=== PATIENT | female | born 1995 | race Caucasian/White ===

== ENCOUNTER 2017-12-20 20:41 | Observation (INO) | payer BC ==
[~2017-12-20] VITALS: Ht 172.7 cm; Wt 60.8 kg
[2017-12-20] MEDS ORDERED: BCPILLS PO (21:26)
[2017-12-20] MEDS ORDERED: SODIUM CHLORIDE 0.9% 1000ML 1,000 ML IV STA (21:26)
[2017-12-20] MEDS ORDERED: METOCLOPRAMIDE HCL INJ 5 MG/ML 2 ML VIAL IV STA (21:26)
[2017-12-20] MEDS ORDERED: CETI10TA10 PO (21:26)
--- NOTE | 2017-12-20 21:32 | EMERGENCY ROOM VISIT NOTE ---
History Report prepared by Kelsi: Trino Yates Under the Supervision of: Dr. Keny Palmer M.D. First contact with patient: 21:16 Chief Complaint: ABDOMINAL PAIN Stated Complaint: SHARP STOMACH PAIN Nursing Triage Summary: Abd pain that started in mid abdomen and has moved to RLQ. + nausea. Feels bloated. H/O IBS History of Present Illness The patient is a 22 year old female who presents to the Emergency Room with complaints of worsening, sharp, right-sided abdominal pain beginning earlier this morning. The patient states her symptoms have been increasing throughout the day to the point where she could not get out of bed. She reports she has a history of this a month ago, but it was not this severe. The patient notes she is also experiencing intermittent sweating throughout the day. She states her stools are typically soft, and she has not had changes in them. The patient reports she had a colonoscopy for possible Crohn's disease. She notes her sister has a history of Crohn's Disease, and her cousin has a history of celiac disease. The patient states her LNMP was 2 weeks ago. She denies the chance of , retaining a tampon, fever, vomiting, nausea, and a history of abdominal surgeries. The patient reports her parents know she is here, so I offered to call them. She said it was not necessary. Source of History: patient Onset: earlier this morning Position: abdomen (right-sided) Quality: sharp Timing: worsening Associated Symptoms: No fevers, No nausea, No vomiting Review of Systems See HPI for pertinent positives & negatives. A total of 10 systems reviewed and were otherwise negative. Past Medical & Surgical Medical Problems: (1) Asthma (2) IBS (irritable bowel syndrome) Family History Cancer Diabetes mellitus Kidney disease Kidney stones Social History Smoking Status: Never Smoker Smokeless Tobacco Use: No Alcohol Use: occasionally Housing Status: lives with friends Occupation Status: [employer] student Current/Historical Medications Scheduled Control Pills ( Control Pills), 1 TAB PO DAILY Cetirizine Hcl (Zyrtec), 10 MG PO DAILY Allergies Coded Allergies: POLLEN (Verified Allergy, Intermediate, ITCHY EYES, SNEEZING, CONGESTION, 12/20/17) Physical Exam Vital Signs Date Time Temp Pulse Resp B/P (MAP) Pulse Ox O2 Delivery O2 Flow Rate FiO2 12/21/17 00:40 102 18 117/68 100 Room Air 12/20/17 23:16 105 18 112/77 98 Room Air 12/20/17 20:47 36.7 114 20 113/77 98 Room Air Physical Exam GENERAL: Awake, alert, well-appearing, in no acute distress HENT: Normocephalic, atraumatic. Oropharynx unremarkable. EYES: Normal conjunctiva. Sclera non-icteric. NECK: Supple. No nuchal rigidity. FROM. No JVD. RESPIRATORY: Clear to auscultation. CARDIAC: Regular rate, normal rhythm. Extremities warm and well perfused. Pulses equal. ABDOMEN: Soft, non-distended. No rebound or guarding. No masses. Tender in the RLQ upon palpation. RECTAL: Deferred. MUSCULOSKELETAL: Chest examination reveals no tenderness. The back is symmetrical on inspection without obvious abnormality. There is no CVA tenderness to palpation. No joint edema. LOWER EXTREMITIES: Calves are equal size bilaterally and non-tender. No edema. No discoloration. NEURO: Normal sensorium. No sensory or motor deficits noted. SKIN: No rash or jaundice noted. Medical Decision & Procedures ER Provider Diagnostic Interpretation: Radiology results as stated below per my review and radiologist interpretation: PELVIC ULTRASOUND CLINICAL HISTORY: Right-sided pelvic pain. COMPARISON STUDY: None. TECHNIQUE: Transabdominal sonography of the pelvis was performed. Transvaginal imaging was deferred in this patient. FINDINGS: The uterus measures 5.8 x 2.5 x 3 cm. Endometrium measures 4 mm in thickness. The right ovary measures 2.9 x 1.8 x 2.4 cm and the left ovary measures 2.7 x 1.7 x 1.3 cm. Color flow was identified within each ovary. There is no free fluid. IMPRESSION: Unremarkable transabdominal pelvic ultrasound. Electronically signed by: Tio Dior M.D. 12/20/2017 10:54 PM Dictated Date/Time: 12/20/2017 10:53 PM APPENDIX ULTRASOUND HISTORY: Right lower quadrant pain. Evaluate for acute appendicitis. COMPARISON: None. FINDINGS: The appendix was not visualized by sonography. IMPRESSION: Nonvisualization of the appendix. This study is nondiagnostic in regards to evaluation for acute appendicitis. Electronically signed by: Tio Dior M.D. 12/20/2017 10:51 PM Dictated Date/Time: 12/20/2017 10:[address] ABDOMEN & PELVIS with contrast: Comparison: Pelvic Ultrasound dated 12/20/2017. Impression: Dilated appendix measuring up to 10 mm with minimal adjacent stranding. Findings are concerning for acute nonperforated appendicitis. Trace free fluid in the pelvis. Additional findings: lower thorax is unremarkable. Liver, gallbladder, spleen, pancreas, and adrenal glands are unremarkable. Kidneys, ureters, and urinary bladder are unremarkable. Uterus and adnexa are unremarkable. Bowel is unremarkable. No acute osseous abnormality. Radiologist: Erich Massey MD Study ready at 0006 and initial results transmitted at 0013 Laboratory Results 12/20/17 21:30 Red Blood Count 4.90, Mean Corpuscular Volume 89.6, Mean Corpuscular Hemoglobin 31.0, Mean Corpuscular Hemoglobin Concent 34.6, Mean Platelet Volume 9.0, Neutrophils (%) (Auto) 81.9, Lymphocytes (%) (Auto) 11.9, Monocytes (%) (Auto) 5.0, Eosinophils (%) (Auto) 0.8, Basophils (%) (Auto) 0.2, Neutrophils # (Auto) 14.37, Lymphocytes # (Auto) 2.09, Monocytes # (Auto) 0.87, Eosinophils # (Auto) 0.14, Basophils # (Auto) 0.04 12/20/17 21:30 Test 12/20/17 21:30 White Blood Count 17.55 K/uL (4.8-10.8) Red Blood Count 4.90 M/uL (4.2-5.4) Hemoglobin 15.2 g/dL (12.0-16.0) Hematocrit 43.9 % (37-47) Mean Corpuscular Volume 89.6 fL (80-100) Mean Corpuscular Hemoglobin 31.0 pg (25-34) Mean Corpuscular Hemoglobin Concent 34.6 g/dl (32-36) Platelet Count 269 K/uL (130-400) Mean Platelet Volume 9.0 fL (7.4-10.4) Neutrophils (%) (Auto) 81.9 % Lymphocytes (%) (Auto) 11.9 % Monocytes (%) (Auto) 5.0 % Eosinophils (%) (Auto) 0.8 % Basophils (%) (Auto) 0.2 % Neutrophils # (Auto) 14.37 K/uL (1.4-6.5) Lymphocytes # (Auto) 2.09 K/uL (1.2-3.4) Monocytes # (Auto) 0.87 K/uL (0.11-0.59) Eosinophils # (Auto) 0.14 K/uL (0-0.5) Basophils # (Auto) 0.04 K/uL (0-0.2) RDW Standard Deviation 39.6 fL (36.4-46.3) RDW Coefficient of Variation 12.3 % (11.5-14.5) Immature Granulocyte % (Auto) 0.2 % Immature Granulocyte # (Auto) 0.04 K/uL (0.00-0.02) Urine Color YELLOW Urine Appearance CLEAR (CLEAR) Urine pH 5.5 (4.5-7.5) Urine Specific [place] 1.025 (1.000-1.030) Urine Protein NEG (NEG) Urine Glucose (UA) NEG (NEG) Urine Ketones NEG (NEG) Urine Occult Blood NEG (NEG) Urine Nitrite NEG (NEG) Urine Bilirubin NEG (NEG) Urine Urobilinogen NEG (NEG) Urine Leukocyte Esterase TRACE (NEG) Urine WBC (Auto) 5-10 /hpf (0-5) Urine RBC (Auto) 0-4 /hpf (0-4) Urine Hyaline Casts (Auto) 1-5 /lpf (0-5) Urine Epithelial Cells (Auto) >30 /lpf (0-5) Urine Bacteria (Auto) 2+ (NEG) Urine Crystals CALCIUM OXALATE (NONE Urine Test NEG (NEG) Anion Gap 5.0 mmol/L (3-11) Est Creatinine Clear Calc Drug Dose 92.1 ml/min Estimated GFR () 102.4 Estimated GFR (Non- 88.4 BUN/Creatinine Ratio 12.1 (10-20) Calcium Level 9.4 mg/dl (8.5-10.1) Total Bilirubin 0.6 mg/dl (0.2-1) Direct Bilirubin 0.1 mg/dl (0-0.2) Aspartate Amino Transf (AST/SGOT) 14 U/L (15-37) Alanine Aminotransferase (ALT/SGPT) 14 U/L (12-78) Alkaline Phosphatase 58 U/L (45-117) Total Protein 7.7 gm/dl (6.4-8.2) Albumin 4.0 gm/dl (3.4-5.0) Lipase 143 U/L (73-393) Labs reviewed by ED physician. Medications Administered Medications (Trade) Dose Ordered Sig/Jamil Route Start Time Stop Time Status Last Admin Dose Admin Sodium Chloride 1,000 ml @ 999 mls/hr Q1H1M STAT IV 12/20/17 21:26 12/20/17 22:26 DC 12/20/17 22:04 999 MLS/HR Metoclopramide HCl (Reglan Inj) 10 mg NOW STAT IV 12/20/17 21:26 12/20/17 21:30 DC 12/20/17 22:04 10 MG Cefoxitin Sodium (Mefoxin 2000mg/ 60 ml D5W) 2,000 mg NOW STAT IV 12/21/17 00:15 12/21/17 00:16 DC 12/21/17 00:39 2,000 MG ED Course 2116: Past medical records reviewed. The patient was evaluated in room B10. A complete history and physical examination was performed. 6: Ordered Metoclopramide HCl 10mg IV, Sodium Chloride 1000 ml @ 999 mls/hr IV 0014: Upon reexamination the patient is resting. I discussed results and treatment plan with the patient and her father on the phone. I answered all questions the father had over the phone. She verbalizes agreement and understanding. The patient will be evaluated for further management. 0015: Ordered Cefoxitin Sodium 2000mg IV 0019: I discussed the patient's case with Dr. Baker, General Surgery. The patient will be evaluated for further management. He will complete the surgery at 0400 today. Medical Decision Etiologies such as appendicitis, diverticulitis, PUD, biliary pathology, UTI, pancreatitis, obstruction, mesenteric ischemia, aortic pathology, infections, inflammatory bowel disease, renal colic, as well as others were entertained. This is a 22-year-old female who presents the emergency department complaining of right-sided abdominal pain. Requested to speak with this patient's parents however she declined. The patient did agree to however obtaining IV laboratory work as well as a CAT scan of the abdomen and pelvis. The patient's laboratory work is concerning for an elevation in her white blood cell count at 17. In addition the patient's ultrasound does not show any evidence of appendicitis or ovarian cysts. The patient refused pain medication here in the emergency department however she did receive normal saline bolus as well as Reglan. Patient was sent for a CAT scan of the abdomen and pelvis which was concerning for acute appendicitis. At this time the patient relented and allowed me to speak with her father. I discussed the fact that the patient will need surgery and started the patient on antibiotics. I did discuss the case with Dr. Baker who is currently in the operating room and will see the patient after his current case. Father is driving in from [place]. Medication Reconcilliation Current Medication List: was personally reviewed by me Blood Pressure Screening Patient's blood pressure: Normal blood pressure Blood pressure disposition: Did not require urgent referral Consults Time Called: 13 Consulting Physician: Dr. Baker, General Surgery Returned Call: [phone] I discussed the patient's case with Dr. Baker, General Surgery. The patient will be evaluated for further management. He will complete the surgery at 0400 today. Impression Primary Impression: Right lower quadrant abdominal pain Scribe Attestation The scribe's documentation has been prepared under my direction and personally reviewed by me in its entirety. I confirm that the note above accurately reflects all work, treatment, procedures, and medical decision making performed by me. Departure Information Dispostion Being Evaluated By Surgeon Patient Instructions My [facility]
[2017-12-20 21:38] LABS: BASO % 0.2 %; BASO ABS # 0.04 K/uL (0-0.2); EOS % 0.8 %; EOS ABS # 0.14 K/uL (0-0.5); HEMATOCRIT 43.9 % (37-47); HEMOGLOBIN 15.2 g/dL (12.0-16.0); IG# 0.04 K/uL (0.00-0.02); LYMPH % 11.9 %; LYMPH ABS # 2.09 K/uL (1.2-3.4); MEAN CELL VOLUME 89.6 fL (80-100); MEAN CORPUSCULAR HGB CONC 34.6 g/dl (32-36); MONO ABS # 0.87 K/uL (0.11-0.59); NEUT % 81.9 %; NEUT ABS # 14.37 K/uL (1.4-6.5); PLATELET COUNT 269 K/uL (130-400); RED CELL DISTRIBUTION WIDTH CV 12.3 % (11.5-14.5); RED CELL DISTRIBUTION WIDTH SD 39.6 fL (36.4-46.3); WHITE BLOOD COUNT 17.55 K/uL (4.8-10.8)
[2017-12-20 22:00] LABS: CALCIUM 9.4 mg/dl (8.5-10.1); CREATININE 0.92 mg/dl (0.60-1.20); POTASSIUM 3.7 mmol/L (3.5-5.1)
[2017-12-20 22:02] LABS: TOTAL PROTEIN 7.7 gm/dl (6.4-8.2)
--- NOTE | 2017-12-20 22:53 | DIAGNOSTIC IMAGING REPORT ---
APPENDIX ULTRASOUND HISTORY: Right lower quadrant pain. Evaluate for acute appendicitis. COMPARISON: None. FINDINGS: The appendix was not visualized by sonography. IMPRESSION: Nonvisualization of the appendix. This study is nondiagnostic in regards to evaluation for acute appendicitis. Electronically signed by: Tio Dior M.D. 12/20/2017 10:51 PM Dictated Date/Time: 12/20/2017 10:50 PM
--- NOTE | 2017-12-20 22:55 | DIAGNOSTIC IMAGING REPORT ---
PELVIC ULTRASOUND CLINICAL HISTORY: Right-sided pelvic pain. COMPARISON STUDY: None. TECHNIQUE: Transabdominal sonography of the pelvis was performed. Transvaginal imaging was deferred in this patient. FINDINGS: The uterus measures 5.8 x 2.5 x 3 cm. Endometrium measures 4 mm in thickness. The right ovary measures 2.9 x 1.8 x 2.4 cm and the left ovary measures 2.7 x 1.7 x 1.3 cm. Color flow was identified within each ovary. There is no free fluid. IMPRESSION: Unremarkable transabdominal pelvic ultrasound. Electronically signed by: Tio Dior M.D. 12/20/2017 10:54 PM Dictated Date/Time: 12/20/2017 10:53 PM
[2017-12-21] VITALS (9 sets, daily range): BP systolic 93–105; BP diastolic 53–72; PULSE 68–106; TEMP 36.5–36.9; O2SAT 96–99; Ht 172.7 cm; Wt 60.8 kg
[2017-12-21] MEDS ORDERED: CEFOXITIN 2000MG/60 ML D5W IV STA (00:15)
--- NOTE | 2017-12-21 05:32 | History and Physical ---
History & Physical Date & Time of Service: Dec 21, 2017 at 05:24 Chief Complaint: Sharp Stomach Pain Primary Care Physician: [facility] History of Present Illness Source: patient This is a 22-year-old female who began with vague generalized abdominal discomfort that was described as a dull ache. It was throughout her abdomen. Over the next 6-7 hours it then migrated to the right lower quadrant or is presently located. She had some nausea and has lost her appetite. She has not vomited. She has diarrhea on a frequent basis but her stools have not changed. She has been evaluated by gastroenterology with colonoscopy. She has a family history of Crohn's but biopsies of her colon and small bowel demonstrated no evidence of Crohn's disease pathologically. She has not had any blood with her stool recently. She has no dysuria or hematuria. She has no irregularities of her menstrual periods. The discomfort is exacerbated by motion. She has not had fever. Past Medical/Surgical History Medical Problems: (1) Asthma (2) IBS (irritable bowel syndrome) PSH: Willis teeth Family History Cancer Diabetes mellitus Kidney disease Kidney stones Social History Smoking Status: Never Smoker Smokeless Tobacco Use: No Alcohol Use: none Occupational Status: [employer] student Allergies Coded Allergies: POLLEN (Verified Allergy, Intermediate, ITCHY EYES, SNEEZING, CONGESTION, 12/20/17) Home Medications Scheduled Control Pills ( Control Pills), 1 TAB PO DAILY Cetirizine Hcl (Zyrtec), 10 MG PO DAILY Review of Systems Constitutional: No fever, No chills Respiratory: No cough, No sputum Cardiovascular: No chest pain Abdomen: + problem reported (as per HPI) Genitourinary - Female: + problem reported (as per HPI) Endocrine: No fatigue Hematologic / Lymphatic: No abnormal bleeding/bruising Integumentary: No rash Physical Exam Vital Signs Date Time Temp Pulse Resp B/P (MAP) Pulse Ox O2 Delivery O2 Flow Rate FiO2 12/21/17 03:49 109 16 133/78 96 Room Air 12/21/17 01:57 114 16 109/66 97 Room Air 12/21/17 00:40 102 18 117/68 100 Room Air 12/20/17 23:16 105 18 112/77 98 Room Air 12/20/17 20:47 36.7 114 20 113/77 98 Room Air General Appearance: WD/WN Head: normocephalic Neck: supple, no adenopathy Respiratory/Chest: chest non-tender, lungs clear Abdomen/GI: normal bowel sounds, soft, + tenderness (to moderate palpation im the RLQ) Back: normal inspection, no CVA tenderness Skin: normal color Diagnostics Laboratory Results Results Past 24 Hours Test 12/20/17 21:30 Range/Units White Blood Count 17.55 4.8-10.8 K/uL Red Blood Count 4.90 4.2-5.4 M/uL Hemoglobin 15.2 12.0-16.0 g/dL Hematocrit 43.9 37-47 % Mean Corpuscular Volume 89.6 80-100 fL Mean Corpuscular Hemoglobin 31.0 25-34 pg Mean Corpuscular Hemoglobin Concent 34.6 32-36 g/dl Platelet Count 269 130-400 K/uL Mean Platelet Volume 9.0 7.4-10.4 fL Neutrophils (%) (Auto) 81.9 % Lymphocytes (%) (Auto) 11.9 % Monocytes (%) (Auto) 5.0 % Eosinophils (%) (Auto) 0.8 % Basophils (%) (Auto) 0.2 % Neutrophils # (Auto) 14.37 1.4-6.5 K/uL Lymphocytes # (Auto) 2.09 1.2-3.4 K/uL Monocytes # (Auto) 0.87 0.11-0.59 K/uL Eosinophils # (Auto) 0.14 0-0.5 K/uL Basophils # (Auto) 0.04 0-0.2 K/uL RDW Standard Deviation 39.6 36.4-46.3 fL RDW Coefficient of Variation 12.3 11.5-14.5 % Immature Granulocyte % (Auto) 0.2 % Immature Granulocyte # (Auto) 0.04 0.00-0.02 K/uL Urine Color YELLOW Urine Appearance CLEAR CLEAR Urine pH 5.5 4.5-7.5 Urine Specific [place] 1.025 1.000-1.030 Urine Protein NEG NEG Urine Glucose (UA) NEG NEG Urine Ketones NEG NEG Urine Occult Blood NEG NEG Urine Nitrite NEG NEG Urine Bilirubin NEG NEG Urine Urobilinogen NEG NEG Urine Leukocyte Esterase TRACE NEG Urine WBC (Auto) 5-10 0-5 /hpf Urine RBC (Auto) 0-4 0-4 /hpf Urine Hyaline Casts (Auto) 1-5 0-5 /lpf Urine Epithelial Cells (Auto) >30 0-5 /lpf Urine Bacteria (Auto) 2+ NEG Urine Crystals CALCIUM OXALATE NONE PRSENT Urine Test NEG NEG Sodium Level 136 136-145 mmol/L Potassium Level 3.7 3.5-5.1 mmol/L Chloride Level 104 98-107 mmol/L Carbon Dioxide Level 27 21-32 mmol/L Anion Gap 5.0 3-11 mmol/L Blood Urea Nitrogen 11 7-18 mg/dl Creatinine 0.92 0.60-1.20 mg/dl Est Creatinine Clear Calc Drug Dose 92.1 ml/min Estimated GFR () 102.4 Estimated GFR (Non- 88.4 BUN/Creatinine Ratio 12.1 10-20 Random Glucose 104 70-99 mg/dl Calcium Level 9.4 8.5-10.1 mg/dl Total Bilirubin 0.6 0.2-1 mg/dl Direct Bilirubin 0.1 0-0.2 mg/dl Aspartate Amino Transf (AST/SGOT) 14 15-37 U/L Alanine Aminotransferase (ALT/SGPT) 14 12-78 U/L Alkaline Phosphatase 58 45-117 U/L Total Protein 7.7 6.4-8.2 gm/dl Albumin 4.0 3.4-5.0 gm/dl Lipase 143 73-393 U/L Diagnostic Radiology PELVIC ULTRASOUND CLINICAL HISTORY: Right-sided pelvic pain. COMPARISON STUDY: None. TECHNIQUE: Transabdominal sonography of the pelvis was performed. Transvaginal imaging was deferred in this patient. FINDINGS: The uterus measures 5.8 x 2.5 x 3 cm. Endometrium measures 4 mm in thickness. The right ovary measures 2.9 x 1.8 x 2.4 cm and the left ovary measures 2.7 x 1.7 x 1.3 cm. Color flow was identified within each ovary. There is no free fluid. IMPRESSION: Unremarkable transabdominal pelvic ultrasound.APPENDIX ULTRASOUND HISTORY: Right lower quadrant pain. Evaluate for acute appendicitis. COMPARISON: None. FINDINGS: The appendix was not visualized by sonography. IMPRESSION: Nonvisualization of the appendix. This study is nondiagnostic in regards to evaluation for acute appendicitis. CT scan of the abdomen and pelvis demonstrates a dilated appendix measuring 10 mm in greatest dimension. There is mild periappendiceal fat stranding consistent with acute appendicitis. Impression Assessment and Plan This patient's history, physical findings, laboratories and CT findings are consistent with appendicitis. I have recommended a laparoscopic appendectomy. I explained the possible need to convert to an open procedure. I explained the possible complications associated with those procedures. The patient wishes to go ahead with surgery and has signed a consent form. Resuscitation Status VTE Prophylaxis Will order VTE Prophylaxis: Yes Reason for no VTE drug order: Treatment not indicated
[2017-12-21] MEDS ORDERED: MIDAZOLAM HCL 1 MG/ML 2ML VIAL ONE (05:50)
[2017-12-21] MEDS ORDERED: PROPOFOL IV EMULSION 10 MG/ML 20 ML VIAL IV ONE (05:51)
[2017-12-21] MEDS ORDERED: FENTANYL CITRATE INJ 50 MCG/1 ML 2 ML VIAL ONE ×2 (05:51→07:08)
[2017-12-21] MEDS ORDERED: HEPARIN SOD (PORCINE) 1000 UNIT/ML 10 ML VIAL ONE (05:52)
[2017-12-21] MEDS ORDERED: BUPIVACAINE 0.5 % 5 MG/1 ML MPF 30ML VIAL ONE (05:52)
[2017-12-21] MEDS ORDERED: LIDOCAINE HCL 2% 2 ML VIAL (20MG/ML) ONE (05:52)
[2017-12-21] MEDS ORDERED: SUCCINYLCHOLINE 100MG/5ML SYR IV ONE (05:52)
[2017-12-21] MEDS ORDERED: CEFAZOLIN SOD 1 GM VIAL ONE (05:52)
[2017-12-21] MEDS ORDERED: DEXAMETHASONE SOD INJ 4 MG/ML VIAL ONE (05:53)
[2017-12-21] MEDS ORDERED: ONDANSETRON INJ 2 MG/ML 2 ML VIAL ONE (05:53)
[2017-12-21] MEDS ORDERED: ATROPINE SULFATE 0.1 MG/ML 5ML SYR IV PRN (06:00)
[2017-12-21] MEDS ORDERED: LABETALOL HCL IV 5 MG/ML 20ML IV PRN (06:00)
[2017-12-21] MEDS ORDERED: EpHEDrine SULFATE INJ 50 MG/ML AMP IV PRN (06:00)
[2017-12-21] MEDS ORDERED: NALOXONE HCL 0.4 MG/1 ML VIAL/CARP IV PRN (06:00)
[2017-12-21] MEDS ORDERED: HYDROmorphone INJ 2 MG/ML SYR/VIAL IV PRN (06:00)
[2017-12-21] MEDS ORDERED: PHENYLEPHRINE 100MCG/ML 5ML SYR IV PRN (06:00)
[2017-12-21] MEDS ORDERED: MEPERIDINE HCL 25 MG/ML CARP IV PRN (06:00)
[2017-12-21] MEDS ORDERED: ONDANSETRON INJ 2 MG/ML 2 ML VIAL IV PRN ×2 (06:00→07:30)
[2017-12-21] MEDS ORDERED: FENTANYL CITRATE INJ 50 MCG/1 ML 2 ML VIAL IV PRN (06:00)
[2017-12-21] MEDS ORDERED: FLUMAZENIL 0.1 MG/1 ML 10 ML VIAL IV PRN (06:00)
[2017-12-21] MEDS ORDERED: GLYCOPYRROLATE INJ 0.2 MG/ML VIAL ONE (06:26)
[2017-12-21] MEDS ORDERED: NEOSTIGMINE METHYLSULFATE 5 MG/5 ML SYR ONE (06:26)
[2017-12-21] MEDS ORDERED: ESMOLOL HCL 10 MG/ML 10 ML VIAL ONE (06:34)
[2017-12-21] MEDS ORDERED: ROCURONIUM BROMIDE 10 MG/ML 5 ML VIAL IV ONE (06:54)
[2017-12-21] MEDS ORDERED: KETOROLAC TROMETHAMINE 30 MG/ML VIAL ONE (06:55)
[2017-12-21] MEDS ORDERED: CEFOXITIN SOD 1 GM VIAL ONE (07:00)
--- NOTE | 2017-12-21 07:21 | [facility] Post Operative Brief Note ---
Immediate Operative Summary Operative Date Dec 21, 2017. Pre-Operative Diagnosis Acute appendicitis Post-Operative Diagnosis Acute appendicitis Procedure(s) Performed Laparoscopic Appendectomy Surgeon Dr. Declan Baker Nurse Examiner Surgeon(s) None Estimated Blood Loss 5 ml Findings Consistent with Post-Op Diagnosis Specimens A: Appendix Drains None Anesthesia Type General Complication(s) none Disposition Disposition: Recovery Room / PACU
[2017-12-21] MEDS ORDERED: MoRPHine SULFATE 4 MG/ML 1 ML CARP\\VIAL IV PRN (07:30)
--- NOTE | 2017-12-21 07:30 | Anesthesiology Progress Note ---
Anesthesia Post Op Note Date & Time Dec 21, 2017 at 07:30 Vital Signs Pain Intensity: 2.0 Vital Signs Past 12 Hours Date Time Temp Pulse Resp B/P (MAP) Pulse Ox O2 Delivery O2 Flow Rate FiO2 12/21/17 05:27 106 16 125/73 98 12/21/17 03:49 109 16 133/78 96 Room Air 12/21/17 01:57 114 16 109/66 97 Room Air 12/21/17 00:40 102 18 117/68 100 Room Air 12/20/17 23:16 105 18 112/77 98 Room Air 12/20/17 20:47 36.7 114 20 113/77 98 Room Air Notes Mental Status: alert / awake / arousable, participated in evaluation Pt Amnestic to Procedure: Yes Nausea / Vomiting: adequately controlled Pain: adequately controlled Airway Patency, RR, SpO2: stable & adequate BP & HR: stable & adequate Hydration State: stable & adequate Anesthetic Complications: no major complications apparent
--- NOTE | 2017-12-21 08:52 | DIAGNOSTIC IMAGING REPORT ---
CT SCAN OF THE ABDOMEN AND PELVIS WITH IV CONTRAST CLINICAL HISTORY: Right lower quadrant abdominal pain. COMPARISON STUDY: Pelvic ultrasound dated 12/20/2017. TECHNIQUE: Following the IV administration of 93 cc of Optiray 320, CT scan of the abdomen and pelvis is performed from the lung bases to the proximal femora. Images are reviewed in the axial, sagittal, and coronal planes. IV contrast was administered without complication. A dose lowering technique was utilized adhering to the principles of ALARA. CT DOSE: 272.17 mGy.cm FINDINGS: Lung bases: The heart is normal in size and without pericardial effusion. The lung bases are clear. Liver: The contrast-enhanced liver is normal in size, contour, and attenuation. There is no intrahepatic biliary ductal dilatation. The hepatic veins and portal veins are patent. Gallbladder: Unremarkable. Spleen: Normal in size and attenuation. Pancreas: Unremarkable. Adrenal glands: Unremarkable. Kidneys: The contrast enhanced kidneys are normal in size and without hydronephrosis. The kidneys enhance symmetrically. Abdominal vasculature: The abdominal aorta is normal in course and caliber. Bowel: The small bowel and colon are normal in course and caliber. The appendix is dilated and fluid-filled, measuring up to 12 mm in thickness. There is mild appendiceal inflammatory change. A calcified appendicolith is seen on image #299. Findings are consistent with acute appendicitis. There is no evidence of appendiceal abscess. Peritoneum: There is no intraperitoneal free air or abdominal ascites. There is a small fat-containing umbilical hernia. Lymphadenopathy: None. Pelvic viscera: The bladder, uterus, and adnexa are normal as visualized. There are bilateral ovarian follicles. Trace free fluid is seen in the cul-de-sac. Skeletal structures: No lytic or blastic lesions are seen. IMPRESSION: 1. Findings are consistent with acute appendicitis. There is no evidence of abscess or perforation. 2. Trace free fluid in the cul-de-sac is likely within physiologic limits. Electronically signed by: Arik Davidson M.D. 12/21/2017 7:14 AM Dictated Date/Time: 12/21/2017 7:11 AM
[2017-12-21] MEDS ORDERED: ACETAMINOPHEN 325 MG TAB PO PRN (09:45)
--- NOTE | 2017-12-21 09:47 | OPERATIVE REPORT ---
DATE OF OPERATION: 12/21/2017 PREOPERATIVE DIAGNOSIS: Appendicitis. POSTOPERATIVE DIAGNOSIS: Appendicitis. PROCEDURE: Laparoscopic appendectomy. SURGEON: Declan Baker MD FINDINGS: The patient had appendicitis involving the distal two-thirds of the appendix. The base was normal. The cecum at the base was normal. There was no evidence of perforation or abscess. The pelvis had a small amount of fluid. This did not appear purulent. TECHNIQUE: The patient was given general anesthetic and the area was prepped and draped in the usual sterile fashion. A transverse incision was made below the umbilicus, carried down through the subcutaneous tissue to the fascia which was grasped with 2 Gerard clamps and incised between. The peritoneum was identified, incised, and the introducer was placed bluntly. The abdomen was then insufflated to a pressure of 15 mmHg with carbon dioxide. The lower midline introducer was placed under direct vision through a small skin incision. The cecum was evaluated and the small bowel was retracted more medially which exposed the appendix extending off the medial aspect of the cecum. The left lower quadrant introducer was then placed under direct vision. Traction was placed anteriorly on the appendix. There were some flimsy adhesions that were taken down, which exposed the mesoappendix. I was able to establish a plane for about four-fifths of the mesoappendix and this was divided using an Endo-RENE stapler. I then was able to further elevate the appendix and identify the base by taking additional flimsy adhesions to the wall of the cecum inferiorly. That allowed me to identify the base of the cecum and establish a plane between the mesoappendix and the appendix. That was divided using the Endo-RENE. Placing additional traction confirmed the fact that I was at the base of the appendix. The appendix was then amputated using the Endo-RENE. The appendix was placed into the Endobag and brought it through the left lower quadrant introducer site. Then the introducer was replaced and the right lower quadrant was irrigated. The irrigation was removed. The staple lines were inspected and there was no bleeding. Any fluid in the right upper quadrant and pelvis was removed. The gas was allowed to escape and the introducers were removed. The fascia of the umbilical and left lower quadrant introducer sites was closed with interrupted 0 Vicryl and the skin of all the incisions was closed with 4-0 Monocryl in either an interrupted or running subcuticular fashion. The skin was anesthetized with 0.5% Marcaine. The skin was cleansed and dried, benzoin placed, Steri-Strips applied. The estimated blood loss was 5 mL. Sponge, needle, and instrument counts were correct prior to closure. The patient tolerated the surgical procedure without complication and was transferred to recovery. I attest to the content of the Intraoperative Record and any orders documented therein. Any exception s are noted below.
[2017-12-21] MEDS: D5W AND 1/2NSS + 20MEQ KCL 1,000 ML IV SCH ×2 (09:55→21:06)
[2017-12-21] MEDS ORDERED: IV FLUIDS COMPLETED PRN (10:00)
[2017-12-21] MEDS ORDERED: OXYC-57 PO (12:04)
--- NOTE | 2017-12-21 12:08 | Discharge Instructions ---
Discharge Instructions Date of Service Dec 21, 2017. Admission Reason for Admission: Appendicitis Discharge Discharge Diagnosis / Problem: same Discharge Goals Goal(s): Decrease discomfort, Improve function Activity Recommendations Activity Limitations: per Instructions/Follow-up section No heavy lifting over 20 pounds for 2 weeks No strenuous activity until cleared by surgeon No submerging incisions underwater for 2 weeks (no bathing, swimming, or hot tubs) No driving while taking narcotic pain medication or until you are pain free . Instructions / Follow-Up Instructions / Follow-Up You may shower in 24 hours. Leave steri strips on incisions for 7 days and then remove. They may fall off on their own that is okay. Walking and light activity is encouraged to prevent blood clots from forming You will be given narcotic pain medication (Percocet) as needed for moderate to severe pain. Take as directed. This medication may make you drowsy and can cause constipation. To combat constipation, drink plenty of water daily, daily walking, you may take OTC stool softener, a gentle laxative, or prune juice if needed. You may take extra strength Ibuprofen as needed in between doses of Percocet for mild pain. When you are NO LONGER taking Percocet you can take extra strength Tylenol as needed for mild pain. DO NOT take Tylenol with Percocet as it has Tylenol in it. Follow-up in surgical office in 2 weeks, please call office at [phone] to make an appointment Current Hospital Diet Patient's current hospital diet: Regular Diet Discharge Diet Recommended Diet: Regular Diet Procedures Procedures Performed: Laparoscopic Appendectomy Pending Studies Studies pending at discharge: yes List of pending studies: appendix pathology will be reviewed at follow up visit Medical Emergencies . Who to Call and When: Medical Emergencies: If at any time you feel your situation is an emergency, please call 911 immediately. . Non-Emergent Contact Non-Emergency issues call your: Primary Care Provider, Surgeon Call Non-Emergent contact if: you have a fever, temperature is above 101, your pain is not controlled, your pain is worsening, your pain is unusual for you, wound has increased drainage, wound has increased redness, wound has increased pain . "Provider Documentation" section prepared by Adrianna Latham. . [place] Drug Monitoring Program Search Results: patient reviewed within database, no issues identified
--- NOTE | 2017-12-21 16:21 | Surgery Progress Note ---
Surgery Progress Note Date of Service Dec 21, 2017. Subjective Post OP Day: POD # 0 s/p laparoscopic appendectomy Objective Vital Signs: Date Time Temp Pulse Resp B/P (MAP) Pulse Ox O2 Delivery O2 Flow Rate FiO2 12/21/17 14:59 36.8 90 18 103/69 (80) 96 Room Air 12/21/17 11:15 36.9 106 16 97/53 (68) 98 Room Air 12/21/17 10:10 36.6 88 16 99/72 (81) 98 Room Air 12/21/17 09:21 89 16 96/66 (76) 98 Room Air 12/21/17 08:45 36.5 87 16 93/59 (70) 97 Room Air 12/21/17 08:15 36.9 68 16 96/62 (73) 99 Room Air 12/21/17 08:15 99 Room Air 12/21/17 08:15 36.9 68 16 96/62 99 Room Air 12/21/17 08:03 37.6 77 16 107/73 (84) 100 Room Air 12/21/17 07:40 36.5 68 20 104/61 97 Room Air 12/21/17 07:30 36.5 62 15 107/65 96 Room Air 12/21/17 07:20 36.5 73 14 102/56 99 Room Air 12/21/17 05:27 106 16 125/73 98 12/21/17 03:49 109 16 133/78 96 Room Air 12/21/17 01:57 114 16 109/66 97 Room Air 12/21/17 00:40 102 18 117/68 100 Room Air 12/20/17 23:16 105 18 112/77 98 Room Air 12/20/17 20:47 36.7 114 20 113/77 98 Room Air General Appearance: WD/WN, no apparent distress Head: normocephalic, atraumatic Neck: trachea midline Respiratory/Chest: no respiratory distress, no accessory muscle use Abdomen: non distended, soft, + tenderness (at incision sites appropriate) Incision(s): clean, dry, intact Laboratory Results: Results Past 24 Hours Test 12/20/17 21:30 Range/Units White Blood Count 17.55 4.8-10.8 K/uL Red Blood Count 4.90 4.2-5.4 M/uL Hemoglobin 15.2 12.0-16.0 g/dL Hematocrit 43.9 37-47 % Mean Corpuscular Volume 89.6 80-100 fL Mean Corpuscular Hemoglobin 31.0 25-34 pg Mean Corpuscular Hemoglobin Concent 34.6 32-36 g/dl Platelet Count 269 130-400 K/uL Mean Platelet Volume 9.0 7.4-10.4 fL Neutrophils (%) (Auto) 81.9 % Lymphocytes (%) (Auto) 11.9 % Monocytes (%) (Auto) 5.0 % Eosinophils (%) (Auto) 0.8 % Basophils (%) (Auto) 0.2 % Neutrophils # (Auto) 14.37 1.4-6.5 K/uL Lymphocytes # (Auto) 2.09 1.2-3.4 K/uL Monocytes # (Auto) 0.87 0.11-0.59 K/uL Eosinophils # (Auto) 0.14 0-0.5 K/uL Basophils # (Auto) 0.04 0-0.2 K/uL RDW Standard Deviation 39.6 36.4-46.3 fL RDW Coefficient of Variation 12.3 11.5-14.5 % Immature Granulocyte % (Auto) 0.2 % Immature Granulocyte # (Auto) 0.04 0.00-0.02 K/uL Urine Color YELLOW Urine Appearance CLEAR CLEAR Urine pH 5.5 4.5-7.5 Urine Specific [place] 1.025 1.000-1.030 Urine Protein NEG NEG Urine Glucose (UA) NEG NEG Urine Ketones NEG NEG Urine Occult Blood NEG NEG Urine Nitrite NEG NEG Urine Bilirubin NEG NEG Urine Urobilinogen NEG NEG Urine Leukocyte Esterase TRACE NEG Urine WBC (Auto) 5-10 0-5 /hpf Urine RBC (Auto) 0-4 0-4 /hpf Urine Hyaline Casts (Auto) 1-5 0-5 /lpf Urine Epithelial Cells (Auto) >30 0-5 /lpf Urine Bacteria (Auto) 2+ NEG Urine Crystals CALCIUM OXALATE NONE PRSENT Urine Test NEG NEG Sodium Level 136 136-145 mmol/L Potassium Level 3.7 3.5-5.1 mmol/L Chloride Level 104 98-107 mmol/L Carbon Dioxide Level 27 21-32 mmol/L Anion Gap 5.0 3-11 mmol/L Blood Urea Nitrogen 11 7-18 mg/dl Creatinine 0.92 0.60-1.20 mg/dl Est Creatinine Clear Calc Drug Dose 92.1 ml/min Estimated GFR () 102.4 Estimated GFR (Non- 88.4 BUN/Creatinine Ratio 12.1 10-20 Random Glucose 104 70-99 mg/dl Calcium Level 9.4 8.5-10.1 mg/dl Total Bilirubin 0.6 0.2-1 mg/dl Direct Bilirubin 0.1 0-0.2 mg/dl Aspartate Amino Transf (AST/SGOT) 14 15-37 U/L Alanine Aminotransferase (ALT/SGPT) 14 12-78 U/L Alkaline Phosphatase 58 45-117 U/L Total Protein 7.7 6.4-8.2 gm/dl Albumin 4.0 3.4-5.0 gm/dl Lipase 143 73-393 U/L Assessment & Plan POD # 0 s/p laparoscopic appendectomy - vss, afebrile - tolerated diet -+diarrhea - no nausea or vomiting Plan: Continue current pain management Continue IV Fluids Continue regular diet Continue IV Zofran prn nausea OOB to chair and ambulation SCDS and Incentive spirometry Discharge home tomorrow Dr. Baker has seen pt, agrees with above
[2017-12-21] MEDS: OXYCODONE/ACETAMINOPHEN 5-325 TAB PO PRN (21:11)
[2017-12-22 03:50] VITALS: BP 100/63; PULSE 67; TEMP 36.6; O2SAT 96
[2017-12-22] MEDS: OXYCODONE/ACETAMINOPHEN 5-325 TAB PO PRN ×2 (07:33→14:09)
[2017-12-22 07:40] VITALS: O2SAT 96
[2017-12-22 07:43] VITALS: BP 100/63; PULSE 67; TEMP 36.6; O2SAT 96
[2017-12-22 08:10] VITALS: BP 116/76; PULSE 69; TEMP 36.6; O2SAT 98
[2017-12-22] MEDS: D5W AND 1/2NSS + 20MEQ KCL 1,000 ML IV SCH (09:25)
--- NOTE | 2017-12-22 10:54 | Surgery Progress Note ---
Surgery Progress Note Date of Service Dec 22, 2017. Subjective Post OP Day: 1 (s/p laparoscopic appendectomy) + feeling well, + complaints (abdominal pain when sitting up), + ambulating, + bowel movement, + flatus, + pain controlled, + diet (regular diet), No chest pain, No SOB, No nausea, No vomiting Objective Vital Signs: Date Time Temp Pulse Resp B/P (MAP) Pulse Ox O2 Delivery O2 Flow Rate FiO2 12/22/17 08:10 36.6 69 18 116/76 (89) 98 Room Air 12/22/17 07:43 36.6 67 16 96 Room Air 12/22/17 07:40 96 12/22/17 03:50 36.6 67 16 100/63 (75) 96 Room Air 12/21/17 22:55 36.9 83 16 101/66 (78) 96 Room Air 12/21/17 19:20 36.9 86 18 105/68 (80) 96 Room Air 12/21/17 19:15 Room Air 12/21/17 15:15 96 Room Air 12/21/17 14:59 36.8 90 18 103/69 (80) 96 Room Air 12/21/17 11:15 36.9 106 16 97/53 (68) 98 Room Air General Appearance: WD/WN, no apparent distress Head: normocephalic, atraumatic Neck: trachea midline Respiratory/Chest: no respiratory distress, no accessory muscle use Abdomen: non distended, soft, no organomegaly, no pulsatile mass, + tenderness (at incision sites appropriate post op) Incision(s): clean, dry (dressing clean and dry, incisions not inspected) Assessment & Plan POD # 1 s/p laparoscopic appendectomy - vss, afebrile - tolerated diet - no nausea or vomiting - pain controlled Plan: d/c home later today d/c iv fluids continue pain management, ambulation, OOB to chair until discharge
--- NOTE | 2017-12-25 11:34 | Discharge Summary ---
Discharge Summary Dates Admission Date / Time: Dec 21, 2017 at 07:25 Discharge Date: Dec 22, 2017 Dispostion / Condition Discharge Disposition: Home Condition at Discharge: Good Principal Diagnosis (1) Appendicitis Problem List (1) Asthma (2) IBS (irritable bowel syndrome) Consultations / Procedures Consultations: None Procedures: Laparoscopic appendectomy Vaccinations: None Pending Studies / Follow-Up Appendix pathology, will be reviewed at follow up visit Medication Reconciliation New Medications: Oxycodone/Acetaminophen 5MG/325MG (Percocet 5MG/325MG) Tab 1 TABLET PO Q4H PRN for Pain, #18 TAB Continued Medications: Control Pills ( Control Pills) Tab 1 TAB PO DAILY, TAB Cetirizine Hcl (Zyrtec) 10 Mg Tab 10 MG PO DAILY, TAB Admission HPI Per the Admitting provider: This is a 22-year-old female who began with vague generalized abdominal discomfort that was described as a dull ache. It was throughout her abdomen. Over the next 6-7 hours it then migrated to the right lower quadrant or is presently located. She had some nausea and has lost her appetite. She has not vomited. She has diarrhea on a frequent basis but her stools have not changed. She has been evaluated by gastroenterology with colonoscopy. She has a family history of Crohn's but biopsies of her colon and small bowel demonstrated no evidence of Crohn's disease pathologically. She has not had any blood with her stool recently. She has no dysuria or hematuria. She has no irregularities of her menstrual periods. The discomfort is exacerbated by motion. She has not had fever. Admission Exam Per the Admitting provider: General Appearance: WD/WN Head: normocephalic Neck: supple, no adenopathy Respiratory/Chest: chest non-tender, lungs clear Abdomen/GI: normal bowel sounds, soft, + tenderness (to moderate palpation im the RLQ) Back: normal inspection, no CVA tenderness Skin: normal color Hospital Course (1) Appendicitis Patient was taken to operating room for laparoscopic appendectomy possible open by Dr. Baker. Patient was found to have acute appendicitis without abscess or perforation. Patient tolerated procedure without any difficulties. Was transferred to recovery room and then to medical/surgical floor for post operative care in stable condition. Diet was advanced to regular diet, IV fluids, IV Zofran prn nausea, PO Percocet with Breakthrough IV Morphine prn pain , activity as tolerated, SCDs and incentive spirometry were ordered post op. Patient was evaluated later in the morning on POD # 0 and doing well. Tired, pain controlled. She was advised to ambulate and use Incentive spirometry. Patient kept overnight for pain management. Evaluated in the morning of POD # 1. afebrile, vitals stable, pain controlled, tolerating diet, adequate urine output, and ambulating. Patient was discharged home on POD # 1 in stable condition. Overall hospital course was uneventful. Discharge Instructions as given to patient Copies To Primary Care Provider: [facility]. Problem Qualifiers (1) Appendicitis: Appendicitis type: acute appendicitis
== END 2017-12-22 15:42 | disposition home or self-care (01) ==
LOC: C.EDB 20:43 → C.MSW 12-21 07:25 → ENRESERV 12-21 07:54
PROVIDERS: ADMIT Surgery; ATTEND Surgery
DX: K35.80 Unspecified acute appendicitis (principal); J45.909 Unspecified asthma, uncomplicated; Z79.3 Long term (current) use of hormonal contraceptives